=== PATIENT | male | born 1975 | race Caucasian/White ===

== ENCOUNTER 2017-09-24 13:03 | Inpatient (IN) | payer OTHER ==
[~2017-09-24] VITALS: Ht 177.8 cm; Wt 83.5 kg
[2017-09-24] VITALS: BP 138/89
--- NOTE | 2017-09-24 15:12 | NUR ---
A 42, admitted to 5E, under the services of ELIZABETH Flores DO with a diagnosis of OPIATE WITHDRAWAL. Chief complaint is NAUSEA VOMITTING, WRESTLESS LEGS, AGITATION. Patient arrived via ambulatory from [facility]. Monitor applied. Initial assessment completed. Vital signs taken and recorded. DR. Roblero was notified of admission to the unit and said he would pass the message to Dr. Stout. Orders received. See assessment for past medical history, medications and allergies. Patient and/or family oriented to unit. [address] Medication Reconciliation reviewed and physicians were notified visitation policy reviewed. Clothing/patient valuable form completed. GHAZAL MYERS
[2017-09-24 16:00] VITALS: BP 146/90
[2017-09-24 16:19] LABS: BASO # 0.1 10*3/uL (0.0-0.1); BASO % 1.2 % (0.0-1.0); EOS # 0.8 10*3/uL (0.0-0.4); EOS % 10.8 % (1.0-4.0); HEMOGLOBIN 13.7 g/dl (14.0-18.0); LYMPH # 1.9 10*3/uL (1.3-4.4); LYMPH % 25.6 % (27.0-41.0); MEAN CELL VOLUME 83.5 fl (80.0-94.0); MEAN CORPUSCULAR HGB 28.6 pg (27.0-31.0); MEAN CORPUSCULAR HGB CONC 34.3 g/dl (33.0-37.0); MEAN PLATELET VOLUME 8.9 fl (9.6-12.3); MONO # 0.7 10*3/uL (0.1-1.0); MONO % 8.8 % (3.0-9.0); NEUT # 3.9 10*3/uL (2.3-7.9); NEUT % 53.3 % (47.0-73.0); PLATELET COUNT AUTOMATED 299 10*3/uL (130-400); RED BLOOD COUNT 4.79 10*6/uL (4.50-5.90); RED CELL DISTRI WIDTH 13.1 % (0-14.5); WHITE BLOOD COUNT 7.4 10*3/uL (4.8-10.8)
[2017-09-24 16:33] LABS: ALBUMIN 3.4 gm/dl (3.1-4.5); ALKALINE PHOSPHATASE 82 U/L (45-117); BUN 14 mg/dl (7-24); CHLORIDE 105 mmol/L (98-107); CREATININE 0.79 mg/dL (0.70-1.30); POTASSIUM 4.3 mmol/L (3.5-5.1); SGOT/AST 19 IU/L (3-35); SGPT/ALT 37 U/L (12-78); SODIUM 139 mmol/L (136-145); TOTAL PROTEIN 8.1 gm/dL (6.4-8.2)
[2017-09-24 16:38] LABS: ETHYL ALCOHOL < 3.0 mg/dl (<3)
--- NOTE | 2017-09-24 18:34 | NUR ---
TYLENOL WAS GIVEN TO PATIENT FOR C/O SWEATING WITH THE CHILLS. ZOFRAN WAS NOT EFFECTIVE, PATIENT STILL HAS C/O NAUSEA BUT DID NOT VOMIT. PATIENT IS VERY ANXIOUS AND AGITATED. WILL CONTINUE TO MONITOR.
[2017-09-24 20:00] VITALS: BP 157/116
--- NOTE | 2017-09-24 20:00 | NUR ---
Medicated with Ativan po x1 dose for irritability and anxiety. Will monitor effectiveness. Call light within reach.
[2017-09-24 20:30] VITALS: BP 134/88
--- NOTE | 2017-09-24 21:00 | NUR ---
Patient resting quietly in bed watching TV. Very calm at this time. Patient states "it's helping a little". Ativan effective. Will continue to monitor. Call light within reach.
--- NOTE | 2017-09-24 23:32 | NUR ---
Patient reports the following symptoms of withdrawal: body aches, leg pain, nausea and cocaine cravings. Patient given scheduled/PRN medication to control withdrawal symptoms. Close observation will be maintained.
[2017-09-25 00:09] VITALS: BP 138/89
--- NOTE | 2017-09-25 00:30 | NUR ---
Patient resting quietly in bed with eyes closed. PRN medications effective. Will continue to monitor. Call light within reach.
--- NOTE | 2017-09-25 00:44 | NUR ---
24 HR chart check completed.
--- NOTE | 2017-09-25 03:31 | NUR ---
Medicated with Motrin po prn for back pain rating 4/10. Will monitor effectiveness. Call light within reach.
[2017-09-25 04:00] VITALS: BP 148/104; BP 148/84
--- NOTE | 2017-09-25 04:30 | NUR ---
Patient resting quietly in bed with eyes closed. Motrin effective. Will continue to monitor. Call light within reach.
[2017-09-25 05:52] LABS: BILIRUBIN NEGATIVE (NEGATIVE); BLOOD NEGATIVE (NEGATIVE); CLARITY CLEAR (CLEAR); COLOR YELLOW (YELLOW); GLUCOSE NEGATIVE (NEGATIVE); KETONE NEGATIVE (NEGATIVE); LEUKO ESTERASE NEGATIVE (NEGATIVE); NITRITE NEGATIVE (NEGATIVE); SPECIFIC GRAVITY 1.015 (1.005-1.030)
[2017-09-25 05:56] LABS: URINE AMPHETAMINES < 1000 (1000ng/ml); URINE BARBITURATES < 200 (200ng/ml); URINE BENZODIAZEPINES < 200 (200ng/ml); URINE CANNABINOIDS (THC) < 50 (50ng/ml); URINE COCAINE < 300 (300ng/ml); URINE METHADONE < 300 (300ng/ml); URINE OPIATES > 300 (300ng/ml)
[2017-09-25 05:57] LABS: URINE PHENCYCLIDINE < 25 (25ng/ml)
[2017-09-25 07:07] LABS: BACTERIA TRACE; MUCOUS 1+
[2017-09-25 08:00] VITALS: BP 147/98
--- NOTE | 2017-09-25 09:20 | NUR ---
PRN BENTYL AND ZOFRAN WERE GIVEN FOR C/O N/V, PRN MOTRIN WAS GIVEN FOR C/O ACHEY JOINTS, ROBAXIN WAS GIVEN FOR C/O MUSCLE SPASMS AND VISTARIL WAS GIVEN FOR ANXIETY. WILL CONTINUE TO MONITOR PATIENTS WITHDRAWAL SYMPTOMS. PATIENT HAS A GOOD ATTITUDE AND VERBALIZES HE KNOW HE HAS TO STOP DOING DRUGS.
--- NOTE | 2017-09-25 10:00 | NUR ---
PATIENT IS CALM, BUT VERBALIZES THE MEDS AREN'T HELPING, JUST A LITTLE. PATIENT HAS NOT EXPERIENCED ANY VOMITTING TODAY AND IS TOLERATING HIS MEALS. HE HAS NOT DISPLAYED ANY ANGER TOWARDS ME AT THIS TIME.
[2017-09-25 12:00] VITALS: BP 138/86
--- NOTE | 2017-09-25 14:11 | NUR ---
PATIENT WANTS TO FOLLOW UP AT THE [facility] WITH DR. CHAVARRIA FOR THE VIVITROL SHOT. 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
--- NOTE | 2017-09-25 15:01 | NUR ---
PRN BENTYL WAS GIVEN FOR C/O ABDOMINAL DISCOMFORT AND ROBAXIN WAS GIVEN FOR C/O MUSCLE SPASMS IN HIS LEGS. WILL MONITOR.
--- NOTE | 2017-09-25 15:38 | NUR ---
PER PATIENT REQUEST, I CALLED HIS TO LET HER KNOW HE WANTED TO TALK TO HER AND HE CANNOT MAKE LONG DISTANCE PHONE CALLS FROM HIS ROOM.
--- NOTE | 2017-09-25 15:45 | NUR ---
PATIENT IS SOMEWHAT SATISFIED WITH THE EFFECTS OF THE BENTYL AND ROBAXIN. STATES HE STILL FEELS BAD. HE IS RESTING QUIETLY AND WATCHING TV.
[2017-09-25 16:00] VITALS: BP 148/72
--- NOTE | 2017-09-25 18:06 | NUR ---
PRN REQUIP WAS GIVEN TO PATIENT FOR C/O WRESTLESS LEGS. WILL MONITOR.
--- NOTE | 2017-09-25 18:45 | NUR ---
PATIENT IS SATISFIED WITH THE EFFECTS OF THE ROBAXIN.
[2017-09-25 20:00] VITALS: BP 152/86
--- NOTE | 2017-09-25 21:35 | NUR ---
Medicated with Trazodone po prn second dose due to patient saying he is still awake and wanting a second dose. Will monitor effectiveness. Call light within reach.
--- NOTE | 2017-09-25 22:23 | NUR ---
Patient resting quietly in bed with eyes closed. PRN medications effective. Will continue to monitor. Call light within reach.
[2017-09-26] VITALS: BP 136/82
--- NOTE | 2017-09-26 00:41 | NUR ---
24 HR chart check completed.
--- NOTE | 2017-09-26 02:31 | NUR ---
Medicated with Vistaril po prn for anxiety and help with sleep. Will monitor effectiveness. Call light within reach.
--- NOTE | 2017-09-26 03:30 | NUR ---
Patient resting quietly in bed with eyes closed. Vistaril effective. Will continue to monitor. Call light within reach.
[2017-09-26 08:00] VITALS: BP 130/82
--- NOTE | 2017-09-26 08:00 | NUR ---
ASSUMED CARE OF PATIENT. PATIENT IS LYING IN BED. AWAKE ALERT AND ORIENTED.
[2017-09-26 12:00] VITALS: BP 126/86
--- NOTE | 2017-09-26 12:26 | NUR ---
PATIENT WANTS TO GO TO [facility] FOR THE VIVITROL SHOT. PATIENT WANTS TO BE SCHEDULED TO SEE DR. CHAVARRIA FOR HIS AFTERCARE. 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
--- NOTE | 2017-09-26 15:46 | NUR ---
PATIENT STATED TO PA STAFF THAT HE IS LEAVING AMA DUE TO HIS AFTERCARE APPOINTMENT THAT HE SCHEDULED HIS TOMORROW AT 8AM IN [place], [place]. PATIENT STATED THAT HIS IS COMING TO PICK HIM UP TODAY. PA STAFF NOTIFIED THE NURSING STATION. 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
[2017-09-26 16:00] VITALS: BP 156/86
--- NOTE | 2017-09-26 18:11 | NUR ---
PT LEFT AGAINST MEDICAL ADVICE. 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
== END 2017-09-26 18:11 | disposition left against medical advice (07) | DRG 894 ==
LOC: 5E 13:03
PROVIDERS: Student in an Organized Health Care Education/Training Program; ADMIT Student in an Organized Health Care Education/Training Program
DX: F11.23 Opioid dependence with withdrawal (principal); G25.81 Restless legs syndrome; J44.9 Chronic obstructive pulmonary disease, unspecified; Z53.21 Procedure and treatment not carried out due to patient leaving prior to being seen by health care provider; Z71.6 Tobacco abuse counseling; Z72.0 Tobacco use; Z82.49 Family history of ischemic heart disease and other diseases of the circulatory system